=== PATIENT | female | born 1995 | race Caucasian/White ===

== ENCOUNTER 2017-09-11 11:22 | Outpatient (CLI) | payer OTHER ==
[2017-09-11 14:06] LABS: URINE BLOOD (Dip) POC Negative (NEGATIVE); URINE GLUCOSE (Dip) POC Negative (NEGATIVE); URINE KETONES (Dip) POC Trace (NEGATIVE); URINE LEUKOCYTE EST (Dip) POC Trace (NEGATIVE); URINE NITRITE (Dip) POC Negative (NEGATIVE); URINE TOTAL PROTEIN POC Trace (NEGATIVE)
== END 2017-09-11 14:20 | disposition home or self-care (01) ==
LOC: OBT 11:22 → L-D 11:22 → OBT 14:20
DX: O62.9 Abnormality of forces of labor, unspecified (principal); Z3A.25 25 weeks gestation of pregnancy
CPT/HCPCS: 76817; 76818; 81003

== ENCOUNTER 2017-10-14 04:46 | Outpatient (CLI) | payer OTHER ==
[2017-10-14] MEDS: LACTATED RINGER'S 1,000 ML IV ×2 (06:45→06:46)
[2017-10-14 07:21] LABS: ADD MAN DIFF? NO
[2017-10-14 07:26] LABS: BASOPHILS % 0.2 % (0.0-2.0); EOSINOPHILS # 0.1 10^3/ul (0.0-0.5); EOSINOPHILS % 0.4 % (0.0-7.0); HEMOGLOBIN 11.3 g/dl (12.0-16.0); LYMPHOCYTES # 2.2 10^3/ul (0.8-2.9); LYMPHOCYTES % 19.5 % (15.0-51.0); MEAN CORPUSCULAR HEMOGLOBIN 27.2 pg (29.0-33.0); MEAN CORPUSCULAR HGB CONC 32.3 g/dl (32.0-37.0); MEAN CORPUSCULAR VOLUME 84.3 fl (82.0-101.0); MEAN PLATELET VOLUME 12.3 fl (7.4-10.4); MONOCYTE # 0.7 10^3/ul (0.3-0.9); MONOCYTES % 6.1 % (0.0-11.0); NEUTROPHIL # 8.3 10^3/ul (1.6-7.5); NEUTROPHILS % 72.8 % (39.0-77.0); PLATELET COUNT 168 10^3/UL (140-415); RED BLOOD COUNT 4.15 10^6/ul (4.20-5.40)
[2017-10-14 07:26] LABS: WHITE BLOOD COUNT 11.3 10^3/ul (4.8-10.8)
[2017-10-14 07:47] LABS: ADD UMIC YES; UR AMORPHOUS CRYSTAL FEW /HPF (NONE SEEN); UR ASCORBIC ACID NEGATIVE (NEGATIVE); UR BACTERIA FEW /HPF (NONE SEEN); UR BILIRUBIN (Dip) NEGATIVE (NEGATIVE); UR BLOOD (Dip) 3+ mg/dL (NEGATIVE); UR CLARITY CLOUDY (CLEAR); UR COLOR YELLOW (YELLOW); UR GLUCOSE (Dip) NEGATIVE (NEGATIVE); UR KETONES (Dip) NEGATIVE (NEGATIVE); UR LEUKOCYTE ESTERASE (Dip) 2+ Leu/ul (NEGATIVE); UR MUCUS FEW /HPF (NONE SEEN); UR NITRITE (Dip) POSITIVE (NEGATIVE); UR RBC > 182 /HPF (0-5); UR SPECIFIC GRAVITY (Dip) 1.013 (1.003-1.030); UR TOTAL PROTEIN (Dip) 2+ mg/dl (NEGATIVE); UR UROBILINOGEN (Dip) NEGATIVE (NEGATIVE); UR WBC 69 /HPF (0-5)
[2017-10-14] MEDS: CEFTRIAXONE 1 GM/50 ML (PMX) 50 ML IVPB (11:34)
[2017-10-14] MEDS: SOD CHLORIDE 0.9% 250 ML IV (11:34)
[2017-10-14 15:07] LABS: RUPTURE FETAL MEMBRANES NEGATIVE (NEGATIVE)
== END 2017-10-14 15:45 | disposition home or self-care (01) ==
LOC: OBT 04:46 → L-D 04:46 → OBT 15:45
DX: O62.9 Abnormality of forces of labor, unspecified (principal); O30.003 Twin pregnancy, unspecified number of placenta and unspecified number of amniotic sacs, third trimester; Z3A.30 30 weeks gestation of pregnancy
CPT/HCPCS: 36415; 76815; 76816; 76817; 76818; 81001; 82731; 84112; 85025; 87086

== ENCOUNTER 2017-11-08 16:44 | Outpatient (CLI) | payer OTHER ==
[2017-11-08 20:56] LABS: ADD UMIC YES; UR ASCORBIC ACID NEGATIVE (NEGATIVE); UR BILIRUBIN (Dip) NEGATIVE (NEGATIVE); UR BLOOD (Dip) NEGATIVE (NEGATIVE); UR CALCIUM OXALATE CRYSTAL MANY /HPF (NONE SEEN); UR CLARITY CLOUDY (CLEAR); UR COLOR YELLOW (YELLOW); UR GLUCOSE (Dip) NEGATIVE (NEGATIVE); UR KETONES (Dip) TRACE mg/dL (NEGATIVE); UR LEUKOCYTE ESTERASE (Dip) 1+ Leu/ul (NEGATIVE); UR MUCUS MODERATE /HPF (NONE SEEN); UR NITRITE (Dip) NEGATIVE (NEGATIVE); UR RBC 2 /HPF (0-5); UR SPECIFIC GRAVITY (Dip) 1.026 (1.003-1.030); UR SQUAMOUS EPITHELIAL CELL FEW /HPF (FEW); UR TOTAL PROTEIN (Dip) NEGATIVE (NEGATIVE); UR UROBILINOGEN (Dip) 1+ mg/dL (NEGATIVE); UR WBC 7 /HPF (0-5)
== END 2017-11-08 22:39 | disposition home or self-care (01) ==
LOC: OBT 16:44 → L-D 16:46 → OBT 22:39
DX: O36.8131 Decreased fetal movements, third trimester, fetus 1 (principal); O30.003 Twin pregnancy, unspecified number of placenta and unspecified number of amniotic sacs, third trimester; Z3A.34 34 weeks gestation of pregnancy
CPT/HCPCS: 76817; 76818; 81001; 87086

== ENCOUNTER 2017-11-28 12:01 | Inpatient (IN) | payer OTHER ==
[~2017-11-28 12:01] MED LIST: OXYTOCIN 30 UNITS/LR 500 ML BAG IV
[2017-11-28] MEDS ORDERED: CEFAZOLIN 3 GM in DEXTROSE 5% 100 ML IV (13:00)
[2017-11-28] MEDS ORDERED: METHYLERGONOVINE 0.2 MG INJ IM ×2 (13:00→22:00)
[2017-11-28] MEDS ORDERED: MISOPROSTOL 200 MCG TAB PR ×2 (13:00→22:00)
[2017-11-28] MEDS ORDERED: OXYTOCIN 30 UNITS/LR 500 ML IV (13:00)
[2017-11-28] MEDS ORDERED: CARBOPROST 250 MCG INJ IM ×2 (13:00→22:00)
[2017-11-28 13:32] LABS: ADD MAN DIFF? NO
[2017-11-28 13:37] LABS: ABNORMAL IP MESSAGE 1; BASOPHILS % 0.1 % (0.0-2.0); EOSINOPHILS # 0.1 10^3/ul (0.0-0.5); EOSINOPHILS % 0.7 % (0.0-7.0); HEMATOCRIT 36.4 % (37.0-47.0); HEMOGLOBIN 11.9 g/dl (12.0-16.0); LYMPHOCYTES # 2.5 10^3/ul (0.8-2.9); LYMPHOCYTES % 32.3 % (15.0-51.0); MEAN CORPUSCULAR HEMOGLOBIN 27.4 pg (29.0-33.0); MEAN CORPUSCULAR HGB CONC 32.7 g/dl (32.0-37.0); MEAN CORPUSCULAR VOLUME 83.9 fl (82.0-101.0); MEAN PLATELET VOLUME 13.4 fl (7.4-10.4); MONOCYTE # 0.6 10^3/ul (0.3-0.9); MONOCYTES % 7.6 % (0.0-11.0); NEUTROPHIL # 4.5 10^3/ul (1.6-7.5); NEUTROPHILS % 58.8 % (39.0-77.0); PLATELET COUNT 120 10^3/UL (140-415); RED BLOOD COUNT 4.34 10^6/ul (4.20-5.40); RED CELL DISTRIBUTION WIDTH 15.8 % (11.5-14.5)
[2017-11-28 13:37] LABS: WHITE BLOOD COUNT 7.6 10^3/ul (4.8-10.8)
[2017-11-28 13:39] LABS: POSITIVE DIFF @See below
[2017-11-28] MEDS: LACTATED RINGER'S 1,000 ML IV (13:41)
[2017-11-28 13:54] LABS: PROTIME 12.2 Sec (11.9-14.9)
[2017-11-28 13:55] LABS: PARTIAL THROMBOPLASTIN TIME 24.1 Sec (25.0-35.0)
[2017-11-28 14:30] LABS: HEPATITIS B SURFACE ANTIGEN NEGATIVE (NEGATIVE)
[2017-11-28] MEDS ORDERED: AMPICILLIN 2 GM/NS (PMX) 100 ML (14:38)
[2017-11-28] MEDS: AMPICILLIN 2 GM/NS (PMX) 100 ML IV (14:48)
[2017-11-28 14:59] LABS: RAPID PLASMA REAGIN NONREACTIVE (NR)
[2017-11-28] MEDS: ONDANSETRON 4 MG INJ IV (16:02)
[2017-11-28] MEDS: CITRIC ACID/SODIUM CITRATE 15 ML CUP PO (16:02)
[2017-11-28] MEDS ORDERED: OXYTOCIN 10 UNIT INJ (16:04)
[2017-11-28] MEDS ORDERED: PHENYLephrine (100 MCG/ML) 5ML SYG ×3 (16:04→17:17)
[2017-11-28] MEDS ORDERED: morphine SULFATE/PF (10 MG/10 ML) INJ (16:04)
[2017-11-28] MEDS ORDERED: BUPIVACAINE 0.75%/DEXT (SPINAL) 2 ML INJ (16:04)
[2017-11-28] MEDS ORDERED: DEXAMETHASONE 4 MG/ML 1 ML INJ (17:05)
[2017-11-28] MEDS ORDERED: METOCLOPRAMIDE 10 MG INJ (17:05)
[2017-11-28] MEDS ORDERED: KETOROLAC 30 MG INJ (17:05)
[2017-11-28] MEDS ORDERED: DIPHENHYDRAMINE 50 MG INJ IV (17:30)
[2017-11-28] MEDS ORDERED: NALBUPHINE HCL (10 MG/1 ML) INJ IV (17:30)
[2017-11-28] MEDS ORDERED: ONDANSETRON 4 MG INJ IV (17:30)
[2017-11-28] MEDS ORDERED: NALOXONE (0.4 MG/ML) INJ IV (17:30)
[2017-11-28] MEDS ORDERED: HYDROmorphONE 0.5 MG/0.5 ML SYG IV ×2 (17:30)
[2017-11-28] MEDS ORDERED: morphine 2 MG INJ IV ×2 (17:30)
[2017-11-28] MEDS ORDERED: HYDROCODONE/APAP (5/325) TAB PO (17:30)
[2017-11-28] MEDS ORDERED: AMPICILLIN 1 GM/NS (PMX) 50 ML IV (19:00)
[2017-11-28] MEDS: OXYTOCIN 30 UNITS/LR 500 ML IV (19:04)
[2017-11-28] MEDS ORDERED: LANOLIN 7 GM TUBE TOP (22:00)
[2017-11-28] MEDS ORDERED: CEFAZOLIN 2 GM/50 ML (PMX) 50 ML IV (22:00)
[2017-11-28] MEDS ORDERED: NA PHOSPHATE/BIPHOS 133 ML ENEMA PR (22:00)
[2017-11-29] MEDS: CEFAZOLIN 2 GM/50 ML (PMX) 50 ML IVPB ×3 (00:23→16:54)
[2017-11-29] MEDS: OXYTOCIN 30 UNITS/LR 500 ML IV (00:25)
[2017-11-29 06:40] LABS: ADD MAN DIFF? NO
[2017-11-29 06:47] LABS: BASOPHILS % 0.1 % (0.0-2.0); EOSINOPHILS % 0.1 % (0.0-7.0); HEMOGLOBIN 9.7 g/dl (12.0-16.0); LYMPHOCYTES # 2.7 10^3/ul (0.8-2.9); MEAN CORPUSCULAR HEMOGLOBIN 28.4 pg (29.0-33.0); MEAN CORPUSCULAR HGB CONC 33.4 g/dl (32.0-37.0); MEAN CORPUSCULAR VOLUME 84.8 fl (82.0-101.0); MEAN PLATELET VOLUME 12.6 fl (7.4-10.4); MONOCYTE # 0.8 10^3/ul (0.3-0.9); MONOCYTES % 7.6 % (0.0-11.0); NEUTROPHIL # 7.3 10^3/ul (1.6-7.5); NEUTROPHILS % 66.8 % (39.0-77.0); PLATELET COUNT 108 10^3/UL (140-415); RED BLOOD COUNT 3.42 10^6/ul (4.20-5.40); RED CELL DISTRIBUTION WIDTH 15.2 % (11.5-14.5)
[2017-11-29] MEDS: KETOROLAC 30 MG INJ IV ×2 (06:53→14:24)
[2017-11-29] MEDS: ENOXAPARIN 40 MG/0.4 ML SYG SC (09:03)
[2017-11-29] MEDS: SENNA/DOCUSATE NA (8.6MG/50MG) TAB PO ×2 (09:08→21:00)
[2017-11-29] MEDS: AZITHROMYCIN 500MG/NS (PMX) 250 ML IVPB (10:31)
[2017-11-29] MEDS: LACTATED RINGER'S 1,000 ML IV (14:24)
[2017-11-29] MEDS ORDERED: HYDROCODONE/APAP (5/325) TAB PO (16:30)
[2017-11-29] MEDS: CLINDAMYCIN 300 MG CAP PO (18:17)
[2017-11-29] MEDS: BISACODYL 10 MG SUPP PR (18:17)
[2017-11-29] MEDS: IBUPROFEN 800 MG TAB PO (22:04)
[2017-11-30] MEDS: IBUPROFEN 800 MG TAB PO ×3 (05:43→21:40)
[2017-11-30] MEDS: CLINDAMYCIN 300 MG CAP PO ×5 (05:43→23:47)
[2017-11-30] MEDS: SENNA/DOCUSATE NA (8.6MG/50MG) TAB PO ×2 (08:52→21:00)
[2017-11-30] MEDS: ENOXAPARIN 40 MG/0.4 ML SYG SC (08:55)
[2017-11-30] MEDS: OXYCODONE/ACETAMINOPHEN (5/325) TAB PO ×2 (15:37→23:48)
[2017-12-01] MEDS: CLINDAMYCIN 300 MG CAP PO ×2 (06:07→11:55)
[2017-12-01] MEDS: IBUPROFEN 800 MG TAB PO ×2 (06:07→13:26)
[2017-12-01] MEDS: SENNA/DOCUSATE NA (8.6MG/50MG) TAB PO (08:39)
[2017-12-01] MEDS: ENOXAPARIN 40 MG/0.4 ML SYG SC (08:43)
[2017-12-01] MEDS: DIPHTH/TET/ACEL PERTUSS (ADULT) 0.5 ML VIAL IM* (10:06)
[2017-12-01] MEDS: MEASLES,MUMPS,RUBELLA VACCINE INJ SC* (11:08)
== END 2017-12-01 16:12 | disposition home or self-care (01) | DRG 765 ==
LOC: L-D 12:01 → PP1 20:31
PROVIDERS: Obstetrics & Gynecology
PROC: 10D00Z1 Extraction of Products of Conception, Low, Open Approach (ICD-10-PCS; principal; 2017-11-28 14:00)
DX: O30.033 Twin pregnancy, monochorionic/diamniotic, third trimester (principal); O31.8X32 Other complications specific to multiple gestation, third trimester, fetus 2; O32.2XX2 Maternal care for transverse and oblique lie, fetus 2; O99.824 Streptococcus B carrier state complicating childbirth; O99.214 Obesity complicating childbirth; E66.01 Morbid (severe) obesity due to excess calories; Z37.2 Twins, both liveborn; Z68.43 Body mass index [BMI] 50.0-59.9, adult; Z3A.37 37 weeks gestation of pregnancy; Z23 Encounter for immunization
CPT/HCPCS: 85025; 85610; 85730; 86592; 86850; 86900; 86901; 87086; 87340; 88307; 90715; 99464